=== PATIENT | female | born 1990 | race Two or more races ===

== ENCOUNTER 2018-07-05 22:32 | Emergency (ER) | payer MEDICAID, OTHER ==
[~2018-07-05] VITALS: Ht 177.8 cm; Wt 133.8 kg
[2018-07-05 22:41] VITALS: BP 135/86
[2018-07-06] MEDS ORDERED: cefTRIAXone SOD 1,000 MG VL ONE (03:00)
[2018-07-06] MEDS ORDERED: TETANUS-DIPTH-ACEL PERTUSSIS 0.5ML SYRG IM ONE ×2 (03:02→03:30)
[2018-07-06] MEDS ORDERED: cefTRIAXone SOD 1,000 MG VL IM ONE (03:30)
== END 2018-07-06 03:40 | disposition home or self-care (01) ==
LOC: ER 22:36
DX: S01.81XA Laceration without foreign body of other part of head, initial encounter (principal); S13.4XXA Sprain of ligaments of cervical spine, initial encounter; M62.838 Other muscle spasm; V49.49XA Driver injured in collision with other motor vehicles in traffic accident, initial encounter; Y93.89 Activity, other specified; Y99.8 Other external cause status; Y92.488 Other paved roadways as the place of occurrence of the external cause
CPT/HCPCS: 12035; 36415; 70450; 73030; 80320; 90471; 90715; 96372; 99285; J0696